=== PATIENT | female | born 1940 | race African-American/Black ===

== ENCOUNTER → 2024-07-21 10:48 | Outpatient (REF) | payer OTHER, SELFPAY | LOC: RAD 10:48 | PROVIDERS: ATTENDING PHYSICIAN Registered Nurse; FAMILY PHYSICIAN Family Medicine Adult Medicine | DX: I70.203 Unspecified atherosclerosis of native arteries of extremities, bilateral legs (principal); I87.2 Venous insufficiency (chronic) (peripheral) | CPT/HCPCS: 93922; 93925; 93971 ==